=== PATIENT | female | born 1970 | race Two or more races ===

== ENCOUNTER 2024-03-23 11:12 | Emergency (ER) | payer SELFPAY ==
[~2024-03-23] VITALS: Ht 157.5 cm; Wt 108.2 kg
[2024-03-23 11:15] VITALS: TEMP 98.3
[2024-03-23] MEDS ORDERED: HYDR25TA2 PO (11:19)
[2024-03-23] MEDS ORDERED: DULO20CA71 PO (11:19)
[2024-03-23 11:44] LABS: BASOPHILS % (AUTO) 1.3 % (0.0-2.0); EOSINOPHILS % (AUTO) 1.7 % (1.0-6.0); HEMATOCRIT 39.6 % (36-46); HEMOGLOBIN 12.8 g/dL (12.0-16.0); LYMPHOCYTES # (AUTO) 4.1 K/uL (1.0-4.8); LYMPHOCYTES % (AUTO) 35.2 % (22.0-44.0); MEAN CORPUSCULAR HEMOGLOBIN 26.8 pg (26.0-34.0); MEAN CORPUSCULAR HGB CONC 32.3 G/dL (31.0-37.0); MEAN CORPUSCULAR VOLUME 83 fL (80-100); MONOCYTES # (AUTO) 0.7 K/uL (0.1-1.0); MONOCYTES % (AUTO) 5.6 % (2.0-9.0); NEUTROPHILS # (AUTO) 6.5 K/uL (1.8-7.7); NEUTROPHILS % (AUTO) 56.2 % (40.0-70.0); PLATELET COUNT (AUTO) 352 K/uL (150-450); RED BLOOD CELL COUNT(AUTO) 4.76 MIL/uL (4.00-5.20); RED CELL DISTRIBUTION WIDTH 14.9 % (11.5-14.5); WHITE BLOOD COUNT (AUTO) 11.6 K/uL (4.5-11.0)
[2024-03-23 11:53] LABS: ANION GAP 11 mmol/L (8-16); CALCIUM, TOTAL 9.7 mg/dL (8.8-10.5); CARBON DIOXIDE 26 mmol/L (22-29); CHLORIDE 102 mmol/L (98-107); CREATININE 0.81 mg/dL (0.60-1.30); GLOMERULAR FILTR. RATE CALC > 60 mL/min (>60); GLUCOSE,RANDOM 101 mg/dL (70-110); POTASSIUM 3.5 mmol/L (3.5-5.1); SODIUM SERUM 139 mmol/L (136-145); UREA NITROGEN, BLOOD 17 mg/dL (7-18)
[2024-03-23 11:58] LABS: ALANINE AMINOTRANSFERASE 31 U/L (12-78); ALBUMIN 3.8 g/dL (3.4-5.0); ALKALINE PHOSPHATASE 160 U/L (46-116); ASPARTATE AMINOTRANSFERASE 20 U/L (15-37); BILIRUBIN,TOTAL 0.4 mg/dL (0.1-1.0); LIPASE 23 U/L (16-77); TOTAL PROTEIN, SERUM 7.9 g/dL (6.4-8.2)
[2024-03-23 12:03] LABS: TROPONIN I-HIGH SENSITIVITY 5 ng/L (<51)
[2024-03-23 12:56] LABS: APPEARANCE,URINE CLEAR (CLEAR); BILIRUBIN,URINE NEGATIVE (NEGATIVE); COLOR,URINE COLORLESS (YELLOW); GLUCOSE, URINE (UA) NEGATIVE (NEGATIVE); KETONES,URINE NEGATIVE (NEGATIVE); LEUKOCYTE ESTERASE ,URINE NEGATIVE (NEGATIVE); NITRATE,URINE NEGATIVE (NEGATIVE); OCCULT BLOOD,URINE NEGATIVE (NEGATIVE); PH,URINE 8.5 (5.0-8.0); PROTEIN,URINE NEGATIVE (NEGATIVE); UROBILINOGEN,URINE <=1.0 mg/dL (<=1.0)
[2024-03-23] MEDS: KETOROLAC TROMETHAMINE 30 MG/ML VIAL IVP ONE ×2 (13:12→18:25)
[2024-03-23] MEDS: ONDANSETRON HCL 4 MG/2 ML VIAL IVP ONE (15:34)
[2024-03-23] MEDS: FentaNYL CITRATE PF 100 MCG/2 ML VIAL IVP ONE ×2 (15:34→18:27)
[2024-03-23] MEDS: LEVOFLOXACIN 500 MG/D5% WATER 100 ML IV ONE (16:05)
[2024-03-23] MEDS: MetroNIDAZOLE 500 MG/NACL 100 ML IV ONE (16:06)
[2024-03-23] MEDS ORDERED: LEVO-72 PO (16:10)
[2024-03-23] MEDS ORDERED: IBUP-1492 PO (16:10)
[2024-03-23] MEDS ORDERED: METR250 PO (16:10)
[2024-03-23] MEDS ORDERED: OXYC-38 PO (18:23)
[2024-03-23 19:04] VITALS: BP 115/65; PULSE 70; RESP 16
== END 2024-03-23 19:11 | disposition home or self-care (01) ==
LOC: EMS 11:16
DX: K57.92 Diverticulitis of intestine, part unspecified, without perforation or abscess without bleeding (principal); F32.A Depression, unspecified; I10 Essential (primary) hypertension
CPT/HCPCS: 99285; 74176; 96365; 96375; 80053; 81003; 83690; 84484; 85025; 36415; 93005; 96376; J3010; J1885; J1956; J3490; J2405

== ENCOUNTER 2024-09-04 13:39 | Emergency (ER) | payer BC ==
[~2024-09-04] VITALS: Ht 157.5 cm; Wt 109.1 kg
[~2024-09-04 13:39] MED LIST: DULO20CA71 PO; HYDR25TA2 PO; IBUP-1492 PO; LEVO-72 PO; METR250 PO; OXYC-38 PO
[2024-09-04 13:41] VITALS: TEMP 98.7
[2024-09-04] MEDS ORDERED: ATOR10TA69 PO (13:41)
[2024-09-04 14:09] LABS: BASOPHILS % (AUTO) 0.9 % (0.0-2.0); EOSINOPHILS % (AUTO) 3.7 % (1.0-6.0); HEMATOCRIT 37.5 % (36-46); HEMOGLOBIN 12.6 g/dL (12.0-16.0); LYMPHOCYTES % (AUTO) 37.8 % (22.0-44.0); MEAN CORPUSCULAR HEMOGLOBIN 28.2 pg (26.0-34.0); MEAN CORPUSCULAR HGB CONC 33.6 G/dL (31.0-37.0); MEAN CORPUSCULAR VOLUME 84 fL (80-100); MONOCYTES # (AUTO) 0.5 K/uL (0.1-1.0); MONOCYTES % (AUTO) 5.8 % (2.0-9.0); NEUTROPHILS # (AUTO) 4.1 K/uL (1.8-7.7); NEUTROPHILS % (AUTO) 51.8 % (40.0-70.0); PLATELET COUNT (AUTO) 342 K/uL (150-450); RED BLOOD CELL COUNT(AUTO) 4.47 MIL/uL (4.00-5.20); RED CELL DISTRIBUTION WIDTH 14.5 % (11.5-14.5); WHITE BLOOD COUNT (AUTO) 7.9 K/uL (4.5-11.0)
[2024-09-04 14:21] LABS: ANION GAP 8 mmol/L (8-16); CARBON DIOXIDE 31 mmol/L (22-29); CHLORIDE 105 mmol/L (98-107); CREATININE 0.85 mg/dL (0.60-1.30); GLOMERULAR FILTR. RATE CALC > 60 mL/min (>60); GLUCOSE,RANDOM 108 mg/dL (70-110); POTASSIUM 3.9 mmol/L (3.5-5.1); SODIUM SERUM 144 mmol/L (136-145); UREA NITROGEN, BLOOD 16 mg/dL (7-18)
[2024-09-04 14:29] LABS: TROPONIN I-HIGH SENSITIVITY 5 ng/L (<51)
[2024-09-04 14:30] LABS: B-TYPE NATRIURETIC PEPTIDE 7 pg/mL (0-100)
[2024-09-04 14:35] LABS: CREATINE KINASE, TOTAL ONLY 199 U/L (26-192)
[2024-09-04] MEDS ORDERED: DOCU100C33 PO (14:56)
[2024-09-04] MEDS: IBUPROFEN 400 MG TABLET PO ONE (15:07)
[2024-09-04] MEDS: ACETAMINOPHEN 325 MG TABLET PO ONE (15:07)
[2024-09-04 16:15] VITALS: BP 133/66; PULSE 63; RESP 18; O2SAT 97
== END 2024-09-04 17:01 | disposition home or self-care (01) ==
LOC: EMS 13:43
DX: R07.9 Chest pain, unspecified (principal); I10 Essential (primary) hypertension; E78.00 Pure hypercholesterolemia, unspecified; F32.A Depression, unspecified; E78.5 Hyperlipidemia, unspecified; Z79.899 Other long term (current) drug therapy
CPT/HCPCS: 71045; 80048; 82550; 83880; 84484; 85025; 93005; 99285; 36415-L1; 36415-TC